=== PATIENT | male | born 1960 | race Caucasian/White ===

== ENCOUNTER 2024-03-04 12:08 | Outpatient (REF) | payer BC, SELFPAY ==
--- NOTE | ~2024-03-04 | XR_ITS ---
EXAMINATION: XR PELVIS 1 VIEW CLINICAL INFORMATION: Pain in unspecified hip M25.559. COMPARISON: XR Right hip 07/23/2017 TECHNIQUE: AP view of the pelvis. FINDINGS: The acetabular and pubic margins are intact. Increased joint space narrowing and acetabular marginal as well as femoral head spurring on the right since the previous evaluation. No evidence for acute fracture or dislocation. Sacrum grossly intact. IMPRESSION: Degenerative changes of the right hip, increased since the previous evaluation. Electronically signed by: Haider Mclaughlin MD 05/12/2024 04:36 PM CECILLE ANGEL
== END 2024-03-04 12:09 | disposition home or self-care (01) ==
LOC: HO.HOSX 12:08
PROVIDERS: PCP Family Medicine; Visit Provider Orthopaedic Surgery
DX: M25.559 Pain in unspecified hip (principal)
CPT/HCPCS: 72170

== ENCOUNTER 2024-03-04 12:08 | Outpatient (AMB) | payer BC, SELFPAY ==
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
[2024-03-04 12:35] VITALS: BMI 35.9
== END 2024-03-04 15:31 | disposition home or self-care (01) ==
PROVIDERS: PCP Family Medicine; Visit Provider Orthopaedic Surgery
DX: M16.11 Unilateral primary osteoarthritis, right hip (principal)
CPT/HCPCS: 99204

== ENCOUNTER 2024-11-10 16:21 | Emergency (ER) | payer BC, OTHER, SELFPAY ==
[2024-11-10 16:58] VITALS: BP 156/72; PULSE 85; RESP 18; TEMP 36.3; O2SAT 96; BMI 37.0
[2024-11-10 17:33] VITALS: BP 156/72; PULSE 85; RESP 18; TEMP 36.3; O2SAT 96
--- NOTE | 2024-11-10 17:36 | PC.NURSE ---
Patient A&O x 3. Patient presents to Ed c/o right calf pain. rated 7/10 non radiating, pain on movement. Pain started Thursday while walking at work and pain symptoms have increased since then. Patient spoke with doctor and PCP recommended to visit ED. Denies SOB, tingling/numbness, injury. No redness or warmth noted in the extremity. +CMS +ROM. Patient hypertensive 154/86 all other VSS and up to date. Plan of care on going
--- NOTE | 2024-11-10 18:35 | ED.LOWEXIN ---
HPI - Extremity Injury (Lower) General Chief Complaint: Extremity Injury, Lower Stated Complaint: right calf inj Time Seen by Provider: 11/10/24 17:29 History of Present Illness ED Provider: Regino Villela MD HPI Narrative: [age] male with subjective sensation of the strain pain in the right lower calf just below the gastrocs. No new edema or redness or warmth. Well-perfused foot . He has had a limp for self-reported chronic sciatic type pain over the past 1-2 days this is worsened with pain at the site there in the calf. He reports chronic pitting edema symmetric pretibial Related Data Home Medications ?Medication ?Instructions ?Recorded ?Confirmed dulaglutide 1.5 mg/0.5 mL 1.5 mg subcut QWEEK 03/04/24 subcutaneous pen injector (Trulicity) famotidine 40 mg tablet 40 mg PO DAILY 03/04/24 gabapentin 300 mg capsule 300 mg PO BID 03/04/24 hydrochlorothiazide 25 mg tablet 25 mg PO DAILY 03/04/24 insulin lispro 100 unit/mL 15 unit subcut TID 03/04/24 subcutaneous solution (Admelog U-100 Insulin lispro) losartan 50 mg tablet 50 mg PO DAILY 03/04/24 metformin 500 mg tablet 500 mg PO TID 03/04/24 metoprolol succinate 100 mg 100 mg PO BID 03/04/24 tablet,extended release 24 hr Allergies Allergy/AdvReac Type Severity Reaction Status Date / Time No Known Allergies Allergy Verified 11/10/24 16:59 [facility] Past Medical History Surgical History (Updated 03/04/24 @ 12:38 by Thu Baker CMA) History of left knee surgery (~1996) Social History Social History (Updated 03/04/24 @ 12:38 by Thu Baker CMA) Smoked in Last 30 Days: No Use of substances other than those prescribed or required for medical reasons: No Advance Directives: No Advance Directives on File: No Current occupational status: employed Current occupation: Lead Mechanic Physical Exam Vital Signs: Vital Signs: Last Vital Signs Temp 97.7 F 11/10/24 18:53 Pulse 78 11/10/24 18:53 Resp 14 11/10/24 18:53 BP 147/80 H 11/10/24 18:53 Pulse Ox 97 11/10/24 18:53 O2 Del Method Room Air 11/10/24 18:53 BMI result Body Mass Index 37.0 Const: Other: EXAM: Gen: Alert, awake, well appearing, well hydrated. Head: Atraumatic Eyes: Anicteric, Normal conjunctiva. Neuro: Alert. Gross movement of all extremities intact. ? Psych: Calm. Cooperative. MSK: No grossly visible deformity. Tenderness in the lower right calf without bruising gross deformity or bony tenderness well-perfused foot. There is pitting edema this is symmetric and only in the pretibial location. No objective edema no tenderness in the popliteal region normal thigh with soft compartments Vital signs: See flowsheet Medical Decision Making Medical Decision Making MDM Narrative: 64-year-old male with right calf pain chronic edema no sign of infection clinically. PCP sent in for DVT exclusion. I think this is low likelihood given the clinical presentation, chronic symmetric edema to be a DVT. He does not have any clear risk factors for this however I have excluded this with high sensitivity at the bedside with point of care ultrasound see report. I explicitly instructed him if he has continued symptoms in 1 week to follow up with PCP for outpatient ultrasound recommended rest ice elevation NSAIDs, heating pad if needed or desired Procedures Procedure Narrative Procedure Narrative: EMERGENCY ULTRASOUND INTERPRETATION-Limited Point of Care Venous (DVT) [This study was ordered, performed, and interpreted by myself. The study reveals: Impression: NO EVIDENCE OF DVT. I RECOMMENDED TO THE PATIENT REPEAT ULTRASOUND IN ONE WEEK IF SYMPTOMS PERSIST.] [Indication: Laterality: RIGHT Common Femoral: -Full Compressibility: YES -Clot Seen: NO Superficial Femoral: -Full Compressibility: YES -Clot Seen: NO Popliteal: -Full Compressibility: YES -Clot Seen: NO Other: Performed by: Regino Villela MD Images were stored CPT: 31515] Discharge Plan Discharge Clinical Impression: Calf pain Patient Disposition: Home, Self-Care Instructions: Leg Pain (ED) Additional Instructions: DISCHARGE DIAGNOSES: Calf pain in the right side ultrasound negative for clot today. Pain felt to be likely musculoskeletal possibly strain If pain persists outpatient ultrasound repeat 1 week recommended HISTORY OF PRESENTATION: ?Pain in the calf EMERGENCY DEPARTMENT COURSE,TESTS, TREATMENTS: While in the ED today point of care ultrasound of the leg excludes DVT in the right side DISCHARGE MEDICATIONS: ?[We have made no changes to your regular medication regimen] FOLLOW-UP: ?Call your primary or general physician soon as possible to discuss your symptoms, your ED visit and to discuss follow up plans Call PCP INSTRUCTIONS ?& RETURN PRECAUTIONS: If any symptoms change first call your primary physician, if it is after-hours your primary doctors office should have a provider front office manager you can speak with. If the symptoms are severe or very concerning to you then call 911 or return to the ED. Return for severe worsening pain call your primary doctor if you still pain swelling and 1 week for repeat ultrasound Regino Villela MD Emergency Physician [facility] Prescriptions: No Action metformin 500 mg tablet 500 mg PO TID insulin lispro [Admelog U-100 Insulin lispro] 100 unit/mL solution 15 unit subcut TID Trulicity 1.5 mg/0.5 mL pen injector 1.5 mg subcut QWEEK metoprolol succinate 100 mg tablet extended release 24 hr 100 mg PO BID losartan 50 mg tablet 50 mg PO DAILY hydrochlorothiazide 25 mg tablet 25 mg PO DAILY famotidine 40 mg tablet 40 mg PO DAILY gabapentin 300 mg capsule 300 mg PO BID Interventions: ED Discharge Assessment Last Done: 11/10/24 18:53 Discharge Date/Time: 11/10/24 18:57 Print Language: Albanian
[2024-11-10 18:51] VITALS: BP 147/80; PULSE 78; RESP 14; TEMP 36.5; O2SAT 97
[2024-11-10 18:53] VITALS: BP 147/80; PULSE 78; RESP 14; TEMP 36.5; O2SAT 97
== END 2024-11-10 18:57 | disposition home or self-care (01) ==
LOC: HO.ED 18:56
PROVIDERS: Emergency Provider Emergency Medicine; PCP Family Medicine
DX: M79.661 Pain in right lower leg (principal); R60.0 Localized edema; Z79.899 Other long term (current) drug therapy
CPT/HCPCS: 99284

== ENCOUNTER 2025-02-03 13:22 | Outpatient (AMB) | payer BC, OTHER, SELFPAY ==
--- OUTSIDE RECORDS SUMMARY | 2024-01-22 09:15 | XMS_ITS ---
Author Organization [facility] Address [address] [place] [address] Care Team Providers Care [employer] Trader Name Role Phone Nicho Ordonez MD Primary Care Provider UnavailCelina Aguilar [phone] Encounters Encounter Location Date Provider Diagnosis [address] [address] 01/22/2024 Celina Johnson Plan Of Treatment Next Appt Details Provider Name:Celina brnadon, 02/10/2025 01:15:00 PM, [address] [place] [address], [id number], Progress Notes * ELLIEAmy RAMIREZOB:1960 ([age] yo M)Acc No.[id number]:01/22/2024 Progress Note Patient: Abrahan MORA Provider: Paige Johnson DPM :1960 A ge:63 Y S ex:Male Date:01/22/2024 Address:[id number] Pcp:Nicho Ordonez MD Subjective: * Chief Complaints: * * Medical History: Objective: * Vitals: Assessment: Plan: * Treatment: * Images: * The named appointment provid er may or may not be the originator of this progress note, and it is not deemed complete until electronically signed by the appointment provider. Sign off status: Pending * Provider: Paige Johnson DPM Date: 0 01/22/2024 Generated for Joaquina pop/Tahir/Barbara on: 0 02/03/2025 01:31 PM EDT
[2025-02-03 13:26] VITALS: BP 132/80; PULSE 87; O2SAT 95; BMI 36.4
--- NOTE | 2025-02-03 13:26 | A.OFFVIS_ITS ---
Vital Signs 02/03/25 13:26 Height 5 ft 10 in Weight 115.227 kg BMI 36.4 BP 132/80 Blood Pressure Location Lt brachial Position Sitting Pulse 87 Pulse Source Pulse Oximeter Pulse Oximetry (%) 95 Oxygen Delivery Method Room Air Intake Visit Reasons: Routine / Dr Ordonez Intake Note: Patient presents for routine appointment. Accompanied by: Self / Same As Patient Allergies No Known Allergies Allergy (Verified 02/03/25 13:29) Medication List - Last Reconciled 02/03/25 by EASTON Martins amlodipine 2.5 mg PO BEDTIME azelaic acid 15% 1 appl topical BID dulaglutide (Trulicity) 1.5 mg subcut QWEEK famotidine 40 mg PO DAILY gabapentin 300 mg PO BID hydrochlorothiazide 25 mg PO DAILY insulin glargine (Basaglar KwikPen U-100 Insulin) 20 units (0.2 mL) subcut BEDTIME losartan 50 mg PO DAILY metformin 1,000 mg PO BIDWMEAL metoprolol succinate ER 100 mg PO BID trazodone 50 mg PO BEDTIME PRN HPI Comments Details: 64-year-old male with history of hypertension, GERD, Latif, R hip osteoarthritis, insomnia presenting to the office today for management of chronic conditions and to establish care. Hypertension-blood pressure in the office today 132/80. Compliant with amlodipine 2.5 mg nightly, hydrochlorothiazide 25 mg daily, losartan 50 mg daily, metoprolol 100 mg twice daily Type 2 diabetes-due for hemoglobin A1c-on metformin 1000 mg BID, 20 units basaglar, Trulicity 1.5 mg weekly. 160-170s. Last A1c 8.2%. Discussed possibly transitioning to Mounjaro which will also help with weight loss GERD-on famotidine Diabetic polyneuropathy-on gabapentin 300 mg twice daily Insomnia- started at onset of diabetes. Taking trazodone nightly which does help but still some broken sleep at times. Difficulty with sleep hygiene due to 2nd shift. Discussed adding melatonin 5-6 mg nightly OA R hip - intermittent pain. Advised by Orthopedic surgery that physical therapy may worsen his condition/pain. He would be unable to get a replacement due to transportation issues following anesthesia. Discussed cortisone injections COncerns: none Health maintenance: Due for colonoscopy but states he is unable to undergo procedure due to ride requirements postanesthesia. He is not interested in Cologuard ROS: See HPI EXAM: Constitutional - Awake and Alert, No apparent distress Eyes - PERRL Cardiovascular - S1S2, RRR, No edema Respiratory - Normal lung expansion, Normal respiratory effort, No respiratory distress, CTA bilaterally Extremities - no calf tenderness bilaterally, no swelling Skin - Warm/Dry Neurological - Alert & oriented x3 Psychological - Appropriate affect [facility] Medical History (Updated 02/03/25 @ 14:21 by EASTON Martins) Rosacea Diabetic polyneuropathy Insomnia GERD (gastroesophageal reflux disease) HLD (hyperlipidemia) HTN (hypertension) Type 2 diabetes mellitus Surgical History (Updated 03/04/24 @ 12:38 by Thu Baker CMA) History of left knee surgery (~1996) Social History (Updated 03/04/24 @ 12:38 by Thu Baker CMA) Current occupational status: employed Current occupation: Inventory Technician Physical Exam Vital Signs: Last Vital Signs Pulse 87 02/03/25 13:26 BP 132/80 02/03/25 13:26 Pulse Ox 95 02/03/25 13:26 Oxygen Delivery Method Room Air 02/03/25 13:26 BMI result Body Mass Index 36.4 Assessment & Plan Assessment & Plan (1) HTN (hypertension): Code(s): I10 - Essential (primary) hypertension Category: Medical Plan: Controlled. Continue amlodipine, losartan, metoprolol (2) HLD (hyperlipidemia): Code(s): E78.5 - Hyperlipidemia, unspecified Category: Medical Plan: Lipid panel ordered. ASCVD risk score to be calculated pending results of study (3) Diabetic polyneuropathy: Code(s): E11.42 - Type 2 diabetes mellitus with diabetic polyneuropathy Category: Medical Plan: Control improving. A1c ordered. Continue Basaglar 20 units nightly, metformin 1000 mg twice daily, Trulicity. Discussed that can transition from Trulicity to Mounjaro pending results which may help with weight loss as well. Counseled on diabetic diet (4) Osteoarthritis of right hip: Code(s): M16.11 - Unilateral primary osteoarthritis, right hip Category: Medical Plan: Advised to reach out to Orthopedic surgery to discuss further options for osteoarthritis. In the meantime, can use ibuprofen or Tylenol. (5) Insomnia: Code(s): G47.00 - Insomnia, unspecified Category: Medical Plan: Discussed sleep hygiene and he is given written instructions on this. Continue trazodone. Advised he can add melatonin Plan Follow-up in the office in 4 months, labs ordered externally Orders: Orders Basic Metabolic Panel Today E11.9 - Type 2 diabetes mellitus without complications, E78.5 - Hyperlipidemia, unspecified, G47.00 - Insomnia, unspecified, I10 - Essential (primary) hypertension, K21.9 - Gastro-esophageal reflux disease without esophagitis Hemoglobin A1c Today E11.9 - Type 2 diabetes mellitus without complications, E78.5 - Hyperlipidemia, unspecified, G47.00 - Insomnia, unspecified, I10 - Essential (primary) hypertension, K21.9 - Gastro-esophageal reflux disease without esophagitis Lipid Panel Today E11.9 - Type 2 diabetes mellitus without complications, E78.5 - Hyperlipidemia, unspecified, G47.00 - Insomnia, unspecified, I10 - Essential (primary) hypertension, K21.9 - Gastro-esophageal reflux disease without esophagitis Prostate Specific Antigen Today E11.9 - Type 2 diabetes mellitus without complications, E78.5 - Hyperlipidemia, unspecified, G47.00 - Insomnia, unspecified, I10 - Essential (primary) hypertension, K21.9 - Gastro-esophageal reflux disease without esophagitis Complete Blood Count Auto Diff Today E11.9 - Type 2 diabetes mellitus without complications, E78.5 - Hyperlipidemia, unspecified, G47.00 - Insomnia, unspecified, I10 - Essential (primary) hypertension, K21.9 - Gastro-esophageal reflux disease without esophagitis Liver Panel Today E11.9 - Type 2 diabetes mellitus without complications, E78.5 - Hyperlipidemia, unspecified, G47.00 - Insomnia, unspecified, I10 - Essential ( primary) hypertension, K21.9 - Gastro-esophageal reflux disease without esophagitis Medications: New amlodipine 2.5 mg PO BEDTIME 90 tabs 1RF famotidine 40 mg PO DAILY 90 tabs 1RF hydrochlorothiazide 25 mg PO DAILY 90 tabs 1RF losartan 50 mg PO DAILY 90 tabs 1RF trazodone 50 mg PO BEDTIME PRN 90 tabs 1RF insomnia insulin glargine (Basaglar KwikPen U-100 Insulin) 20 units (0.2 mL) subcut BEDTIME 45 mL 1RF azelaic acid 15% 1 appl topical BID 50 grams 5RF gabapentin 300 mg PO BID 180 caps 1RF metoprolol succinate ER 100 mg PO BID 180 tabs 1RF Coding Level of Care Code New Pt Level 4 (73729) Complex EM visit Add On G2211 Diagnoses HTN (hypertension) I10 HLD (hyperlipidemia) E78.5 Diabetic polyneuropathy E11.42 Osteoarthritis of right hip M16.11 Insomnia G47.00
--- OUTSIDE RECORDS SUMMARY | 2025-02-03 13:31 | XMS_ITS | Clinical Summary ---
Author Organization [facility] [employer] [facility] Address [address] [place] [address] Care Team Providers Care Dynamotor Repairer Name Role Phone Unknown, Primary Care Provider Unavailabl e Social History Tobacco Use Types Packs/Day Years Used Date Smoking Tobacco: Never Assessed Sex and Gender Information Value Date Recorded Sex Assigned at Not on file Gender Identity Not on file Sexual Orientation Not on file Job Start Date Occupation Industry Not on file Not on file Not on file Plan of Treatment Health Maintenance Due Date Last Done Comments Hepatitis C Screening 1960 COVID-19 Vaccine (#1) 02/02/1963 Depression Screening 1974 Preventative Health Evaluation 1980 DTap / Tdap / Td (1 - Tdap) 1981 Colon Cancer Screening (Colonoscopy) 08/03/2007 Shingrix-Zoster Vaccine (1 of 2) 2012 Influenza Vaccine (#1) 2025 RSV Adult > 60+ Yrs or Pregn ant (1 - 1-dose 75+ series) 2037 Hepatitis B Vaccines Aged Out No long er eligible based on patient's age to complete this topic Pneumococcal Vaccine Aged Out No long er eligible based on patient's age to complete this topic RSV Ped < 20 months Aged Out No longe r eligible based on patient's age to complete this topic Care Teams Dynamotor Repairer Relationship Specialty Start Date End Date Unknown, PCP - General 08/28/23
--- OUTSIDE RECORDS SUMMARY | 2025-02-03 13:32 | XMS_ITS | Patient Health Record ---
Author Organization [facility] Address [address] [facility] [place] [address] Care Team Providers Care Motor And Controls Tester Name Role Phone Nicho Ordonez MD Primary Care Provider Unavailab sissy LuiromaCelina Unavailable [phone] Allergies No Known Allergies Results Component Value Reference Range Notes HEMOGLOBIN A1C (GLYCOHEMOGLO BIN) Reviewed date:04/01/2024 01:05:29 PM Interpretation: Performing Lab: Notes/Report: TOTAL HEMOGLOBIN (HGBA1C) 7.1 HEMOGLOBIN A1C (GLYCOHEMOGLO BIN) Reviewed date:06/24/2024 01:25:17 PM Interpretation: Performing Lab: Notes/Report: HEMOGLOBIN A1C % (HH) 8.6 Reason For Referral No Information Medications Medication SIG (Take, Route, Frequency, Duration) Notes Start Date End Date Status Levemir Not-Taking Glimepiride Not-Taki ng Losartan Potassium N ot-Taking Metoprolol Tartrate Not-Taking Gabapentin 300 MG TAKE ONE CAPSULE BY MOUTH TWICE DAILY; Duration: 90 Active Extra Depth Orthopedic Shoes (1 Pair) with Customized Heat Molded Multidensity Innersoles (3 Pair) as directed Dx: NIDDM/Polyneuropathy (E11.42), Hammertoe Foot Deformity (M20.41,M20.42), Preulcerative Skin Lesion(s) (L85.1 04/15/2019 Active metFORMIN HCl Not-Ta yanna Zolpidem Tartrate 10 MG (Schedule IV Devin g) take 1 tablet by mouth at bedtime Oral; Duration: 30 Not-Taking hydroCHLOROthiazide Not-Taking traZODone HCl Active Zolpidem Tartrate No t-Taking Famotidine Not-Takin g metFORMIN HCl 500 MG Oral; Duration: 90 Active Metoprolol Succinate Not-Taking Aspirin Active Physical Therapy . . . 2-3x/week; Duration: 3-4 weeks Not-Taking Metoprolol Tartrate 100 MG take 1 tablet by mouth twice a day Oral; Duration: 30 Active Losartan Potassium 100 MG take 1 tablet by mouth once daily Oral; Duration: 90 Active Trulicity 1.5 MG/0.5ML as directed Subcutaneous Active Glimepiride 2 MG Oral; Duration: 90 Not-Taking amLODIPine Besylate 2.5 MG 1 tablet Oral ly Once a day Active Levemir FlexTouch 100 UNIT/ML Subcutaneous; Duration: 50 Not-Taking Multivitamin Active Physical Therapy . . . 2-3x/week; Duration: 3-4 weeks 01/23/2016 Not-Taking ZyrTEC Allergy Activ e Piroxicam 20 MG 1 capsule with food Orally Once a day; Duration: 30 day(s) 01/24/2015 Not-Taking Famotidine 40 MG Oral; Duration: 30 Active Basaglar KwikPen Act sanket hydroCHLOROthiazide 25 MG 1 tablet Orall y Once a day Active Immunizations Vaccine Route Administration Date Status Comme nts Influenza Unknown 12/31/2015 Administered Influenza Unknown 02/05/2017 Administered Influenza Unknown 01/30/2021 Administered Influenza Unknown 01/30/2022 Administered Influenza Unknown 01/30/2023 Administered Influenza Unknown 01/31/2024 Administered COVID-19 Moderna Vaccine Unknown 03/28/2021 Administered First Dose:07/23/2020 Second Dose:08/20/2020 Social History Tobacco Use: Social History Observation Description Date Details (start date - stop date) Never Smoker NA - NA Tobacco Use/Smoking Question Answer Notes Are you a: nonsmoker Additional Findings: Tobacco Non-User Current no n-smoker Alcohol Screen Question Answer Notes Did you have a drink containing alcohol in the p ast year? No Points 0 Interpretation Negative Tobacco use other than smoking: Question Answer Notes Are you an other tobacco user? No Problems Problem Type SNOMED Code ICD Code Onset Dates Problem Status W/U Status Risk Notes Problem Acquired hammer toe of right foot (9600925145483100 ) Other hammer toe(s) (acquired), right foot (M20.41) Active confirmed Problem Acquired hammer toe of left foot (1474318844123116 ) Other hammer toe(s) (acquired), left foot (M20.42) Active confirmed Problem Polyneuropathy due to type 2 diabetes mellitus (915413724) Type 2 diabetes mellitus with diabetic polyneuropathy (E11.42) Active confirmed Vital Signs Blood pressure diastolic 70 mm Hg 11/18/2024 Height 9nw49re in 11/18/2024 Blood pressure systolic 120 mm Hg 11/18/2024 Weight 255 lbs 11/18/2024 BMI 36.58 kg/m2 11/18/2024 Encounters Encounter Location Date Provider Diagnosis [address] [address] 04/01/2024 Celina Johnson Type 2 diabetes mellitus with diabetic polyneuropathy E11.[address] [address] 06/24/2024 Celina Johnson Type 2 diabetes mellitus with diabetic polyneuropathy E11.[address] [address] 08/31/2024 Celinasergo Luiroma Type 2 diabetes mellitus with diabetic polyneuropathy E11.[address] [address] 11/18/2024 Celina Luiroma Type 2 diabetes mellitus with diabetic polyneuropathy E11.42 ; Plantar fasciitis of left foot M72.2 ; Pain in left foot M79.672 ; Interstitial myositis of left foot M60.172 and Bursitis of left foot M77.52 Assessments Encounter Date Diagnosis (ICD Code) Assessment Notes Treatment Notes Treatment Clinical Notes Section Notes 04/01/2024 Type 2 diabetes mellitus with diabetic polyneuropathy (ICD-10 - E11.42) 06/24/2024 Type 2 diabetes mellitus with diabetic polyneuropathy (ICD-10 - E11.42) 08/31/2024 Type 2 diabetes mellitus with diabetic polyneuropathy (ICD-10 - E11.42) 11/18/2024 Type 2 diabetes mellitus with diabetic polyneuropathy (ICD-10 - E11.42) 11/18/2024 Plantar fasciitis of left foot (ICD-10 - M72.2) Patient Educated with: HEEL CORD STRETCHES.pdf (HEEL CORD STRETCHES.pdf ) Patient Educated with: RICE THERAPY.pdf (RICE THERAPY.pdf) 11/18/2024 Pain in left foot (ICD-10 - M79.672) 11/18/2024 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) 11/18/2024 Bursitis of left foot (ICD-10 - M77.52) Plan Of Treatment Pending Test Test Name Order Date X ray : Foot, left 2V 04/15/2019 X ray : Foot, left 3V 01/24/2015 X ray : Foot, right 3V 06/26/2021 70761-JPJPTPI NAIL, 1-5 01/23/2016 20526-NSDA SKIN LESIONS, 2 TO 4 01/23/20 16 49390-ESVM SKIN LESIONS, 2 TO 4 02/20/20 17 06385-LMGI SKIN LESION 01/24/2015 62212-NKLH SKIN LESION 02/21/2015 67735-UBER NAIL(S) 02/21/2015 60590-TDXW NAIL(S) 01/24/2015 Next Appt Details Provider Name:Celina brandon, 02/10/2025 01:15:00 PM, [address] [place], [address], Insurance Providers Payer Name Payer Address Payer Phone Subscriber Number Group Number Insured Name Patient Relationship to Insured Coverage Start Date Coverage End Date [facility] [address] [place] [address] [id number] Abrahan Andino Self - patient is the insured [facility] [address] [place] [address] [id number] Abrahan Andino Self - patient is the insured Medical (General) History Medical History History ICD Code Anemia Diabetic High blood pressure Chicken pox Surgical History Surgery Date(Month/Year) left knee 01/05/97 left bicep 08/09/10 Hospitalization History Reason Date(Month/Year) [facility] [place] ER for stomach pain 12/19/15
--- OUTSIDE RECORDS SUMMARY | 2025-02-03 13:32 | XMS_ITS | Patient Health Record ---
Author Organization [facility] Address [address] [place] [address] Care Team Providers Care Pharmacy Technician Trainee Name Role Phone José Luis (RETIRED) Nicho HERNANDEZ Primary Care Provider Unavailable Diego Espinoza Unavailable [phone] Reason For Referral No Information Medications Medication SIG (Take, Route, Frequency, Duration) Notes Start Date End Date Status Losartan Potassium 100 MG 1 tablet Orall y Once a day Active Fluticasone Propionate 50 MCG/ACT Nasal for 30 Active metFORMIN HCl 1000 MG 1 tablet with a me al Orally twice a day Active Levemir FlexTouch 100 UNIT/ML inject 10 units subcutaneously once daily AT 7 PM Subcutaneous for 90 Active Famotidine 40 MG Oral for 30 A ctive Omeprazole 40 MG 1 capsule Orally Onc e a day for 30 day(s) Active Glimepiride 2 MG Oral for 90 A ctive hydroCHLOROthiazide 25 MG take 1 tablet by mouth once daily Oral for 90 Active Folic Acid 400 MCG 1 tablet Orally Once a day for 30 day(s) Active Metoprolol Tartrate 100 MG take 1 tablet by mouth twice a day Oral for 90 Active Vitamin B Complex - as directed Orally Active Zolpidem Tartrate 10 MG (Schedule IV Devin g) TAKE 1 TABLET BY MOUTH AT BEDTIME DIRECTED Oral for 30 Active Iron 325 (65 Fe) MG 1 tablet Orally Once a day for 30 day(s) Active Aspirin 81 81 MG 1 tablet Orally Once a day for 30 day(s) Active Dicyclomine HCl 10 MG 1-2 capsules Orall y prn abdominal pain/crampsFour times a day for 30 day(s) 09/29/2018 Active ZyrTEC 10 MG 1 tablet Orally Once a day Active Immunizations Vaccine Route Administration Date Status Comme nts Influenza Unknown 12/30/2017 Administered Social History Tobacco Use: Social History Observation Description Date Details (start date - stop date) Never Smoker NA - NA Tobacco Use/Smoking Question Answer Notes Patient is a nonsmoker Alcohol Screen Question Answer Notes Did you have a drink containing alcohol in the p ast year? No Points 0 Interpretation Negative Section Notes: Nonsmoker; no sig.alcohol Problems Problem Type SNOMED Code ICD Code Onset Dates Problem Status W/U Status Risk Notes Problem 840306414 Encounter for screening for malignant neoplasm of colon (Z12.11) Active confirmed Problem 221231516 Gastroesophageal reflux disease, esophagitis presence not specified (K21.9) Active confirmed Problem 23404653 Iron deficiency anemia, unspecified iron deficiency anemia type (D50.9) Active confirmed Problem 65590904 Irritable bowel syndrome, unspecified type (K58.9) Active confirmed Plan Of Treatment Pending Test Test Name Order Date IRON + IBC (FE) 09/29/2018 FERRITIN 09/29/2018 VITAMIN B12 AND FOLATE 09/29/2018 CBC w DIFF 09/29/2018 Future Test Test Name Order Date UPPER GI ENDOSCOPY 09/29/2018 COLONOSCOPY 09/29/2018 Insurance Providers Payer Name Payer Address Payer Phone Subscriber Number Group Number Insured Name Patient Relationship to Insured Coverage Start Date Coverage End Date [facility] [address] [place] [address] [id number] JOSSELINE KAYE Self - patient is the insured Medical (General) History Medical History History ICD Code Denies NH,,CVA,Lung disease,renal diseas e Seasonal allergies Kidney stones IDDM Hypertension EGD in 2009-Dr. Castellanos--no e sophagitis,no Horne's, minimal gastritis--gastric biopsies neg for Hpylori Colonoscopy in [address] Castellanos--hyperplastic/inflammatory polyps, small area of ileitis-majority of TI appeared grossly normal Iron def anemia in with above w/u--did not have a video capsule study, he reports neg. labs for celiac disease Surgical History Surgery Date(Month/Year) left bicep tendon rupture 2010 left knee arthroscopy 1996
== END 2025-02-03 14:10 | disposition home or self-care (01) ==
LOC: HO.HMCHD 13:23
PROVIDERS: PCP Family Medicine; Visit Provider Physician Assistant
DX: I10 Essential (primary) hypertension (principal); E78.5 Hyperlipidemia, unspecified; E11.42 Type 2 diabetes mellitus with diabetic polyneuropathy; M16.11 Unilateral primary osteoarthritis, right hip; G47.00 Insomnia, unspecified

== ENCOUNTER → 2025-02-03 13:22 | Outpatient (BNVA) | payer BC, OTHER, SELFPAY | PROVIDERS: PCP Family Medicine; Visit Provider Physician Assistant | DX: Z13.31 Encounter for screening for depression (principal) ==